=== PATIENT | female | born 2005 | race Caucasian/White ===

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

== ENCOUNTER 2024-07-26 07:59 | Emergency (ER) | payer BC, MEDICAID ==
[~2024-07-26] VITALS: Ht 162.6 cm; Wt 63.6 kg
[2024-07-26 08:00] VITALS: TEMP 97.6
[2024-07-26 09:55] LABS: ANION GAP 10 (8-16); BLOOD UREA NITROGEN 6 MG/DL (7-18); BUN/CREATININE RATIO 15.4 (10.0-20.0); CALCIUM 8.9 MG/DL (8.5-10.1); CHLORIDE 107 MMOL/L (99-107); CREATININE 0.39 MG/DL (0.40-0.90); GLUCOSE 90 MG/DL (70-104); POTASSIUM 3.6 MMOL/L (3.5-5.1); SODIUM 139 MMOL/L (135-145); TOTAL CARBON DIOXIDE 22.1 MMOL/L (24-32); eCRCL 199 ML/MIN; eGFR > 90 ML/MIN
[2024-07-26 10:38] VITALS: BP 118/72; PULSE 97; RESP 16; O2SAT 100
[2024-07-26] MEDS: potassium Cl 20 mEq SR tablet PO STA (10:41)
[2024-07-26] MEDS ORDERED: POTASSIUM CHLORIDE 20 MEQ/15 ML oral solution PO STA (10:42)
== END 2024-07-26 10:46 | disposition home or self-care (01) ==
LOC: ER 07:59
DX: R25.2 Cramp and spasm (principal); M79.661 Pain in right lower leg; Z88.0 Allergy status to penicillin
CPT/HCPCS: 36415; 80048; 93971; 99284